=== PATIENT | male | born 1980 | race Caucasian/White ===

== ENCOUNTER 2023-08-05 09:15 | Outpatient (CLI) | payer OTHER, SELFPAY ==
[2023-08-05 09:29] VITALS: PULSE 73; RESP 18; O2SAT 98
[2023-08-05] MEDS: albuterol 2.5 mg/3 mL Neb INHALATION (09:29)
== END 2023-08-05 09:16 | disposition home or self-care (01) ==
PROVIDERS: Visit Provider Nurse Practitioner Family
DX: J01.90 Acute sinusitis, unspecified (principal)
CPT/HCPCS: 94060; J7613